=== PATIENT | female | born 1995 | race Caucasian/White ===

== ENCOUNTER 2017-03-16 23:01 | Outpatient (CLI) | payer OTHER ==
[2017-03-17] MEDS: ACETAMINOPHEN 500 MG TAB PO (00:43)
[2017-03-17] MEDS: LACTATED RINGER'S 1,000 ML IV (01:02)
[2017-03-17] MEDS ORDERED: LACTATED RINGER'S 1,000 ML IV (01:30)
[2017-03-17 02:55] LABS: ADD UMIC NO; UR ASCORBIC ACID NEGATIVE (NEGATIVE); UR BILIRUBIN (Dip) NEGATIVE (NEGATIVE); UR BLOOD (Dip) NEGATIVE (NEGATIVE); UR CLARITY CLEAR (CLEAR); UR COLOR YELLOW (YELLOW); UR GLUCOSE (Dip) NEGATIVE (NEGATIVE); UR KETONES (Dip) NEGATIVE (NEGATIVE); UR LEUKOCYTE ESTERASE (Dip) NEGATIVE Leu/ul (NEGATIVE); UR NITRITE (Dip) NEGATIVE (NEGATIVE); UR SPECIFIC GRAVITY (Dip) 1.011 (1.003-1.030); UR TOTAL PROTEIN (Dip) NEGATIVE (NEGATIVE); UR UROBILINOGEN (Dip) NEGATIVE (NEGATIVE)
== END 2017-03-17 02:58 | disposition home or self-care (01) ==
LOC: OBT 23:01 → L-D 23:05 → OBT 03-17 02:58
DX: O36.8120 Decreased fetal movements, second trimester, not applicable or unspecified (principal); O23.42 Unspecified infection of urinary tract in pregnancy, second trimester; Z3A.26 26 weeks gestation of pregnancy
CPT/HCPCS: 36415; 76818; 81003; 87086; 96360; 96361

== ENCOUNTER 2017-03-17 02:53 | Emergency (ER) | payer OTHER | END 2017-03-17 05:02 | disposition home or self-care (01) | LOC: FTE 02:53 | DX: J11.1 Influenza due to unidentified influenza virus with other respiratory manifestations (principal) | CPT/HCPCS: 87400; 99283 ==

== ENCOUNTER 2017-06-01 15:43 | Inpatient (IN) | payer OTHER ==
[2017-06-01] MEDS: LACTATED RINGER'S 1,000 ML IV ×2 (17:57→21:47)
[2017-06-01] MEDS ORDERED: CARBOPROST 250 MCG INJ IM (18:00)
[2017-06-01] MEDS ORDERED: LIDOCAINE 1% (MPF) 30 ML INJ INJ (18:00)
[2017-06-01] MEDS ORDERED: OXYTOCIN 30 UNITS/LR 500 ML IV ×2 (18:00)
[2017-06-01] MEDS ORDERED: MISOPROSTOL 200 MCG TAB PR (18:00)
[2017-06-01] MEDS ORDERED: METHYLERGONOVINE 0.2 MG INJ IM (18:00)
[2017-06-01 18:07] LABS: ADD MAN DIFF? NO
[2017-06-01 18:09] LABS: BASOPHIL # 0.1 10^3/ul (0.0-0.1); BASOPHILS % 0.5 % (0.0-2.0); EOSINOPHILS # 0.1 10^3/ul (0.0-0.5); EOSINOPHILS % 0.5 % (0.0-7.0); HEMOGLOBIN 13.9 g/dl (12.0-16.0); LYMPHOCYTES # 2.1 10^3/ul (0.8-2.9); LYMPHOCYTES % 19.1 % (15.0-51.0); MEAN CORPUSCULAR HEMOGLOBIN 32.6 pg (29.0-33.0); MEAN CORPUSCULAR HGB CONC 36.6 g/dl (32.0-37.0); MEAN PLATELET VOLUME 10.7 fl (7.4-10.4); MONOCYTE # 0.6 10^3/ul (0.3-0.9); MONOCYTES % 5.8 % (0.0-11.0); NEUTROPHILS % 73.4 % (39.0-77.0); PLATELET COUNT 228 10^3/UL (140-415); RED BLOOD COUNT 4.27 10^6/ul (4.20-5.40); RED CELL DISTRIBUTION WIDTH 12.5 % (11.5-14.5)
[2017-06-01 18:25] LABS: INR 0.85; PROTIME 11.7 Sec (11.9-14.9); PT RATIO 0.9
[2017-06-01 18:26] LABS: PARTIAL THROMBOPLASTIN TIME 24.4 Sec (25.0-35.0)
[2017-06-01 18:56] LABS: HEPATITIS B SURFACE ANTIGEN NEGATIVE (NEGATIVE)
[2017-06-01 20:39] LABS: RAPID PLASMA REAGIN NONREACTIVE (NR)
[2017-06-02] MEDS: BUTORPHANOL 2 MG INJ IV (03:13)
[2017-06-02] MEDS: LACTATED RINGER'S 1,000 ML IV ×2 (09:29→23:42)
[2017-06-02 16:47] LABS: AMPHETAMINE/METHAMPHETAMINE Negative (NEGATIVE); BARBITURATES Negative (NEGATIVE); BENZODIAZEPINES Negative (NEGATIVE); CANNABINOIDS Negative (NEGATIVE); COCAINE Negative (NEGATIVE); OPIATES Negative (NEGATIVE)
[2017-06-03] MEDS: BUTORPHANOL 2 MG INJ IV (07:32)
[2017-06-03] MEDS: LACTATED RINGER'S 1,000 ML IV ×2 (07:37→10:46)
[2017-06-03] MEDS: OXYTOCIN 30 UNITS/LR 500 ML IV ×2 (08:45→14:28)
[2017-06-03] MEDS ORDERED: FENTAnyl 2MCG/ML-ROPIV 0.2% 100 ML (10:33)
[2017-06-03] MEDS ORDERED: EPHEDrine SULFATE 50 MG/5 ML SYG IV (11:00)
[2017-06-03] MEDS ORDERED: FENTAnyl 2MCG/ML-ROPIV 0.2% 100 ML BAG EPI (11:00)
[2017-06-03] MEDS ORDERED: NALOXONE (0.4 MG/ML) INJ IV (11:00)
[2017-06-03] MEDS ORDERED: DIPHENHYDRAMINE 50 MG INJ IV (11:00)
[2017-06-03] MEDS ORDERED: ONDANSETRON 4 MG INJ IV (11:00)
[2017-06-03] MEDS ORDERED: ZOLPIDEM 5 MG TAB PO (17:00)
[2017-06-03] MEDS ORDERED: METHYLERGONOVINE 0.2 MG INJ IM (17:00)
[2017-06-03] MEDS ORDERED: HYDROCODONE/APAP (5/325) TAB PO ×2 (17:00)
[2017-06-03] MEDS ORDERED: DIBUCAINE 1% 30 GM OINT PR (17:00)
[2017-06-03] MEDS ORDERED: OXYTOCIN 30 UNITS/LR 500 ML IV (17:00)
[2017-06-03] MEDS ORDERED: CARBOPROST 250 MCG INJ IM (17:00)
[2017-06-03] MEDS ORDERED: MISOPROSTOL 200 MCG TAB PR (17:00)
[2017-06-03] MEDS ORDERED: LANOLIN 7 GM TUBE TOP (17:00)
[2017-06-03] MEDS: WITCH HAZEL/GLYCERIN PAD PR (17:08)
[2017-06-03] MEDS: BENZOCAINE 20% 56 ML SPRAY TOP (17:08)
[2017-06-03] MEDS: IBUPROFEN 600 MG TAB PO (17:08)
[2017-06-03] MEDS: CEPHALEXIN 500 MG CAP PO (17:08)
[2017-06-03] MEDS: LACTATED RINGER'S 1,000 ML IV* (17:15)
[2017-06-03] MEDS: MAGNESIUM HYDROXIDE 30ML CUP PO (22:17)
[2017-06-03] MEDS: SENNA/DOCUSATE NA (8.6MG/50MG) TAB PO (22:17)
[2017-06-04] MEDS: IBUPROFEN 600 MG TAB PO ×5 (00:03→23:47)
[2017-06-04] MEDS: CEPHALEXIN 500 MG CAP PO ×5 (00:03→23:47)
[2017-06-04] MEDS: SENNA/DOCUSATE NA (8.6MG/50MG) TAB PO ×2 (09:08→21:00)
[2017-06-04] MEDS: MAGNESIUM HYDROXIDE 30ML CUP PO ×2 (09:08→21:00)
[2017-06-04 10:09] LABS: ADD MAN DIFF? NO
[2017-06-04 10:14] LABS: WHITE BLOOD COUNT 9.6 10^3/ul (4.8-10.8)
[2017-06-04 10:14] LABS: BASOPHILS % 0.4 % (0.0-2.0); EOSINOPHILS # 0.1 10^3/ul (0.0-0.5); EOSINOPHILS % 1.3 % (0.0-7.0); HEMATOCRIT 34.3 % (37.0-47.0); LYMPHOCYTES # 1.9 10^3/ul (0.8-2.9); MEAN CORPUSCULAR HEMOGLOBIN 32.2 pg (29.0-33.0); MONOCYTE # 0.7 10^3/ul (0.3-0.9); MONOCYTES % 7.2 % (0.0-11.0); NEUTROPHIL # 6.8 10^3/ul (1.6-7.5); NEUTROPHILS % 70.7 % (39.0-77.0); PLATELET COUNT 170 10^3/UL (140-415); RED BLOOD COUNT 3.73 10^6/ul (4.20-5.40); RED CELL DISTRIBUTION WIDTH 12.6 % (11.5-14.5)
[2017-06-05] MEDS: CEPHALEXIN 500 MG CAP PO (06:10)
[2017-06-05] MEDS: IBUPROFEN 600 MG TAB PO (06:10)
[2017-06-05] MEDS: DIPHTH/TET/ACEL PERTUSS (ADULT) 0.5 ML VIAL IM* (08:00)
[2017-06-05] MEDS: MEASLES,MUMPS,RUBELLA VACCINE INJ SC* (08:01)
[2017-06-05] MEDS: VARICELLA VACCINE LIVE/PF 1,350 UNIT/0.5 ML ML SC* (08:01)
== END 2017-06-05 11:00 | disposition home or self-care (01) | DRG 775 ==
LOC: OBT 15:43 → PP1 06-03 16:21 → L-D 15:44 → OBT 17:00 → L-D 17:00
PROVIDERS: Obstetrics & Gynecology
PROC: 10E0XZZ Delivery of Products of Conception, External Approach (ICD-10-PCS; principal; 2017-06-01)
PROC: 0UQKXZZ Repair Hymen, External Approach (ICD-10-PCS; 2017-06-01)
PROC: 3E033VJ Introduction of Other Hormone into Peripheral Vein, Percutaneous Approach (ICD-10-PCS; 2017-06-01)
DX: O41.03X0 Oligohydramnios, third trimester, not applicable or unspecified (principal); O76 Abnormality in fetal heart rate and rhythm complicating labor and delivery; O36.5930 Maternal care for other known or suspected poor fetal growth, third trimester, not applicable or unspecified; Z3A.38 38 weeks gestation of pregnancy; Z37.0 Single live birth; O70.0 First degree perineal laceration during delivery
CPT/HCPCS: 62319; 80307; 85025; 85610; 85730; 86592; 86900; 86901; 87340; 99464

== ENCOUNTER 2018-10-15 18:33 | Emergency (ER) | payer OTHER | END 2018-10-15 21:02 | disposition home or self-care (01) | LOC: FTE 18:33 | DX: R11.2 Nausea with vomiting, unspecified (principal) | CPT/HCPCS: 99283 ==